=== PATIENT | female | born 1960 | race Two or more races ===

== ENCOUNTER 2019-10-18 07:15 | Day surgery (SDC) | payer OTHER ==
[~2019-10-18 07:15] MED LIST: SYNTHROID75 MCG PO
== END 2019-10-18 15:07 | disposition home or self-care (01) ==
LOC: CIR.AMB 07:15
DX: N95.0 Postmenopausal bleeding (principal)

== ENCOUNTER 2020-05-10 09:15 | Emergency (ER) | payer OTHER ==
[~2020-05-10] VITALS: Ht 160 cm; Wt 78.9 kg
[2020-05-10] MEDS ORDERED: MEGESTROL ACETA40 MG (09:32)
== END 2020-05-10 14:57 | disposition home or self-care (01) ==
LOC: ER 09:15
DX: N93.8 Other specified abnormal uterine and vaginal bleeding (principal); R10.2 Pelvic and perineal pain

== ENCOUNTER 2020-07-08 05:42 | Day surgery (SDC) | payer OTHER ==
[~2020-07-08] VITALS: Ht 160 cm; Wt 78.0 kg
[~2020-07-08 05:42] MED LIST changes: +MEGESTROL ACETA40 MG
[2020-07-08] MEDS ORDERED: ATARAX25 MG (07:58)
[2020-07-08] MEDS ORDERED: PERMETHRIN60 GM (07:58)
[2020-07-08] MEDS ORDERED: WAL-ZYR10 MG (07:58)
== END 2020-07-09 08:00 | disposition home or self-care (01) ==
LOC: SURH 05:42 → O/R 05:42 → CIR.AMB 05:42 → SURH 07:00 → EDSTATUS 10:00 → CIR.AMB 10:00 → SURH 10:00 → OB/GYN 12:06 → O/R 12:06 → CIR.AMB 07-09 08:00 → OB/GYN 07-09 10:50
PROVIDERS: ATTEND Obstetrics & Gynecology Gynecology
DX: N80.0 Endometriosis of uterus (principal); N72 Inflammatory disease of cervix uteri; N93.8 Other specified abnormal uterine and vaginal bleeding